=== PATIENT | female | born 1980 | race Caucasian/White ===

== ENCOUNTER 2019-06-28 15:47 | Emergency (ER) | payer OTHER, SELFPAY ==
--- NOTE | ~2019-06-28 | CT_ITS ---
EXAMINATION: CT abdomen pelvis w con INDICATION: Right lower quadrant pain, history of bowel obstruction TECHNIQUE: Computed tomographic images of the abdomen and pelvis were obtained after the administrati on of 100 cc of Omnipaque 350 intravenous contrast. The dose-length product (DLP) was 373.14 mGy-cm. Automated exposure control and iterative reconstruction technique were employed. COMPARISON: 07/10/2015 FINDINGS: The lung bases are clear. The heart size is normal. The gallbladder is surgically absent. T here is mild enlargement of the common bile duct and central intrahepatic ducts which is likely due t o post cholecystectomy state. The liver, spleen, pancreas, and adrenal glands are normal. The kidneys are unremarkable. No pathologically enlarged abdominal or pelvic lymph nodes are identified. There i s a small volume of ascites in the right lower quadrant and pelvis. Small bowel loops in the right lo wer quadrant are borderline distended with some demonstrating small bowel feces sign. The terminal il eum appears to be normal in caliber or decompressed beyond the affected segment. The appendix is norm al. An IUD is noted in the uterus. The bladder is distended. IMPRESSION: 1. Borderline distended small bowel of the right lower quadrant with small bowel feces sign which may reflect ileus versus early partial obstruction. Reviewed, dictated and finalized at location A. IMPRESSION: 1. Borderline distended small bowel of the right lower quadrant with small medardo l feces sign which may reflect ileus versus early partial obstruction.
--- NOTE | 2019-06-28 16:03 | ED.ABDPAIN ---
HPI - Abdominal Pain General Chief Complaint: Abdominal Pain Stated Complaint: Abd pain Time Seen by Provider: 06/28/19 15:57 Source: patient Mode of arrival: ambulatory Limitations: no limitations History of Present Illness HPI narrative: Patient is a 38-year-old female who presents for evaluation of abdominal pain. Pain is located in the right lower quadrant, described as sharp, aching in nature without radiation to the back or lower pelvis. No left-sided pain. Patient denies any nausea, vomiting, fever or chills. She did have some diarrhea this morning. No hematuria or dysuria. Patient does not believe she is , she has an IUD in place. No history of pain such as this in the past. She has a history of cholecystectomy, section, no other abdominal surgeries. Related Data Allergies Allergy/AdvReac Type Severity Reaction Status Date / Time No Known Allergies Allergy Verified 12/15/15 10:05 Review of Systems Review of Systems: Narrative: CONSTITUTIONAL: Denies fever CARDIOVASCULAR: Denies chest pain RESPIRATORY: Denies cough or dyspnea. GASTROINTESTINAL: Reports right-sided abdominal pain SKIN: Denies rash MUSCULOSKELETAL: Denies back pain NEUROLOGIC: Denies headache [facility] Past Medical History Medical History (Updated 06/28/19 @ 18:34 by Maria C Lawrence MD) No pertinent past medical history Surgical History Surgical History (Updated 06/28/19 @ 16:08 by Maria C Lwarence MD) Hx of cholecystectomy Social History Social History (Updated 06/28/19 @ 16:09 by Maria C Lawrence MD) Smoking status: Current every day smoker Tobacco type: cigarettes Alcohol intake: never Substance use: never Gender identity (if verbalized by the patient): Male Exam Narrative: Exam Narrative: GENERAL: Awake, alert, conversant HEAD: Normocephalic, atraumatic. EYES: PERRLA and EOMI. ENT: Nares clear, no rhinorrhea or epistaxis. Mucous membranes moist. NECK: Supple. CHEST: No respiratory distress, breathing even and non labored HEART: Regular rate, sinus rhythm ABDOMEN:Non distended, right lower quadrant abdominal tenderness EXTREMITIES: Normal range of motion. No edema. SKIN: Warm, dry, no rash. NEURO:No focal deficits. Alert and oriented x3 Course Vital Signs Vital signs: Vital Signs Temperature 37.3 C 06/28/19 16:13 Pulse Rate 103 H 06/28/19 16:13 Respiratory Rate 18 06/28/19 16:13 Blood Pressure 144/96 H 06/28/19 16:13 Pulse Oximetry 100 06/28/19 16:13 Temperature 37.3 C 06/28/19 16:13 Pulse Rate 103 H 06/28/19 16:13 Respiratory Rate 18 06/28/19 16:13 Blood Pressure 144/96 H 06/28/19 16:13 Pulse Oximetry 100 06/28/19 16:13 MDM - Abdominal Pain MDM Narrative Medical decision making narrative: Patient presented to the emergency department for evaluation of right lower quadrant abdominal pain. At the time of initial assessment, ABCs are intact and vital signs are stable. Physical exam notable for right lower quadrant abdominal pain without rebound or rigidity. No distention. IV access obtained and labs were drawn. Laboratory results show mild leukocytosis, no severe electrolyte derangement or acute kidney injury. CT scan is notable for small ileus versus early partial small bowel obstruction. Patient without any distention, nausea or vomiting. Patient was offered admission to the hospital and evaluation by general surgery as well as bowel rest, but patient declined, and wanted to pursue treatment at home for now with conservative therapy including pain and nausea medication as the patient is currently not vomiting. I did explain the importance of adhering to minimal oral intake and clear liquids only, that she should return if her pain worsen or she is unable to tolerate oral intake. Patient voiced understanding and was discharged home. Differential Diagnosis Differential diagnosis: Likely abdominal pain, acute appendicitis, calculus of kidney, constipation
[2019-06-28 16:13] VITALS: BP 144/96; PULSE 103; RESP 18; TEMP 37.3; O2SAT 100
[2019-06-28] MEDS: DICYCLOMINE HCL INJ 20 MG/2 ML VIAL IM (16:23)
[2019-06-28] MEDS: SODIUM CHLORIDE 0.9% IV 1,000 ML 999 ML IV CONT (16:23)
[2019-06-28 16:30] LABS: Basophils Absolute Auto 0.1 K/mm3 (0.0-0.1); Basophils Percent Auto 0.6 % (0.2-1.2); Eosinophils Absolute Auto 0.1 K/mm3 (0-0.3); Eosinophils Percent Auto 1.1 % (0-4.4); Hematocrit 44.1 % (37.0-47.0); Immature Granulocyte Absolute 0.03 K/mm3 (0.00-0.031); Immature Granulocyte Percent A 0.3 % (0-0.5); Lymphocytes Absolute Auto 2.44 K/mm3 (0.9-3.2); Lymphocytes Percent Auto 22.7 % (18.3-44.2); Mean Corpuscular Hemoglobin 31.1 pg (26-34); Mean Corpuscular Volume 91.3 fl (80-100); Mean Platelet Volume 10.9 fl (7.4-10.4); Monocytes Absolute Auto 0.7 K/mm3 (0.1-0.6); Neutrophils Absolute Auto 7.5 K/mm3 (1.3-6.7); Neutrophils Percent Auto 69.3 % (45.5-73.1); Platelet Count Result 221 k/mm3 (150-375); Red Blood Count 4.83 M/mm3 (4.2-5.4); Red Cell Distribution Width 12.5 % (11.5-14.5); White Blood Count 10.8 K/mm3 (4.5-10.0)
[2019-06-28 16:46] LABS: Add Urine Microscopic? YES; Appearance Urine Clear (Clear); Bilirubin Urine Negative (Negative); Blood Urine Negative (Negative); Color Urine Yellow (Yellow); Glucose Urine UA Negative (Negative); Ketones Urine Negative (Negative); Leukocyte Esterase Ur Negative LEU/UL (Negative); Mucus Urine Rare /lpf; Nitrate Urine Negative (Negative); Protein Urine 1+ mg/dL (Negative); Specific Grav Ur 1.018 (1.001-1.035); Squamous Epithelial Cell Urine Many /hpf (Few); Urobilinogen Urine Negative mg/dL (<2.0); WBC Urine 0-3 /hpf
[2019-06-28 17:11] LABS: Alanine Aminotransferase 18 U/L (4-35); Albumin Level 4.9 g/dL (3.5-5.1); Alkaline Phosphatase 73 U/L (38-126); Aspartate Amino Transferase 25 U/L (14-36); Bilirubin,Total 0.4 mg/dL (0.2-1.3); Blood Urea Nitrogen 15 mg/dL (7-17); Calcium 9.5 mg/dL (8.4-10.2); Carbon Dioxide 24 mmol/L (22-30); Chloride 102 mmol/L (98-107); Estimated CRCL calculation 96 ml/min; Estimated Glomerular Filt Rate > 60; Glucose 108 mg/dL (65-105); Lipase 66 U/L (23-300); Potassium 3.9 mmol/L (3.4-5.0); Sodium 137 mmol/L (137-145)
[2019-06-28 17:12] LABS: Estimated CRCL calculation 85 ml/min; Estimated Glomerular Filt Rate > 60
[2019-06-28 19:09] VITALS: BP 132/74; PULSE 70; RESP 14; O2SAT 99
== END 2019-06-28 19:10 | disposition home or self-care (01) ==
PROVIDERS: Emergency Provider Emergency Medicine; PCP Family Medicine
DX: K56.7 Ileus, unspecified (principal); F17.210 Nicotine dependence, cigarettes, uncomplicated
CPT/HCPCS: 36415; 74177; 80053; 81001; 81025; 83690; 85025; 96361; 96372; 96374; 99284; J0131; J0500; J7030; Q9967

== ENCOUNTER 2019-09-12 11:04 | Emergency (ER) | payer OTHER, SELFPAY ==
--- NOTE | ~2019-09-12 | XR_ITS ---
EXAMINATION: XR shoulder LT min 2V INDICATION: Left shoulder pain TECHNIQUE: Four views of the left shoulder are obtained. COMPARISON: None available FINDINGS: There is no fracture, dislocation, or subluxation. The bones, soft tissues, and joint space s are normal. IMPRESSION: 1. No acute osseous abnormality. Reviewed, dictated and finalized at location B.
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
--- NOTE | ~2019-09-12 | XR_ITS ---
EXAMINATION: XR ribs LT 2V w CXR 2V INDICATION: Left rib pain TECHNIQUE: PA and lateral views of the chest and 3 views of the left ribs were obtained. COMPARISON: 05/17/2018 FINDINGS: The lungs are free of acute opacities. There is no pleural effusion or pneumothorax. The ca rdiomediastinal silhouette is normal. No displaced rib fracture is identified. Surgical clips in the right upper quadrant are likely from prior cholecystectomy. IMPRESSION: 1. No acute cardiopulmonary abnormality or evidence of displaced rib fracture. Reviewed, dictated and finalized at location B.
[2019-09-12 11:16] VITALS: BP 128/81; PULSE 86; RESP 16; TEMP 37.2; O2SAT 98
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
[2019-09-12 12:48] VITALS: BP 126/86; PULSE 80; RESP 16; TEMP 36.6; O2SAT 98
== END 2019-09-12 12:49 | disposition home or self-care (01) ==
PROVIDERS: Emergency Provider Emergency Medicine; PCP Family Medicine
DX: M25.512 Pain in left shoulder (principal); S70.02XA Contusion of left hip, initial encounter; S20.212A Contusion of left front wall of thorax, initial encounter; J45.909 Unspecified asthma, uncomplicated; M16.0 Bilateral primary osteoarthritis of hip; F17.210 Nicotine dependence, cigarettes, uncomplicated; V47.5XXA Car driver injured in collision with fixed or stationary object in traffic accident, initial encounter
CPT/HCPCS: 71046; 71100; 73030; 73502; 81025; 99284

== ENCOUNTER 2021-01-16 08:22 | Outpatient (CLI) | payer BC, SELFPAY ==
--- NOTE | ~2021-01-16 | MM_ITS ---
EXAMINATION: MM screening raimundo BI w emily HISTORY: Screening TECHNIQUE: Craniocaudal and mediolateral oblique 3-D tomosynthesis images were obtained and synthetic 2-D images were generated. CAD analysis was submitted and interpreted. COMPARISON: No prior mammogram is available for comparison at this institution. BREAST PARENCHYMAL COMPOSITION: The breasts are heterogenously dense, which may obscure small masses. FINDINGS: There is no evidence of suspicious mass, calcification, or architectural distortion to sugg est malignancy in either breast. There has been no suspicious interval change. IMPRESSION: 1. No mammographic evidence of malignancy. 2. Recommend routine screening mammography in one year. BI-RADS Category 1: Negative Reviewed, dictated and finalized at location A. EF OPERATOR
== END 2021-01-16 08:23 | disposition home or self-care (01) ==
LOC: ANHIMG 08:24
PROVIDERS: PCP Family Medicine; Visit Provider Obstetrics & Gynecology
DX: Z12.31 Encounter for screening mammogram for malignant neoplasm of breast (principal)
CPT/HCPCS: 77063; 77067

== ENCOUNTER 2021-02-27 17:51 | Emergency (ER) | payer BC, SELFPAY ==
--- NOTE | 2021-02-27 17:52 | ED.URI ---
HPI - URI/Sore Throat General Chief Complaint: Upper Respiratory Infection Stated Complaint: fever/cough/sore throat Time Seen by Provider: 02/27/21 18:06 Source: patient and RN notes reviewed Mode of arrival: ambulatory Limitations: no limitations History of Present Illness HPI Narrative: 40-year-old female presents concern for fever, chills, fatigue, cough, sore throat that started yesterday. Reports she has been taking Tylenol and [id number] cold medicine with little relief. Reports she has members of her family have similar symptoms. MD elicited complaint: sore throat Related Data Allergies Allergy/AdvReac Type Severity Reaction Status Date / Time No Known Allergies Allergy Verified 10/31/19 08:14 Review of Systems Review of Systems: CONSTITUTIONAL: Reports malaise, chills, sweats,, fatigue, fever. EYES: Denies visual changes, redness, or discharge. ENT: Denies rhinorrhea, congestion, sinus pain, otalgia. Reports sore throat. CARDIOVASCULAR: Denies chest pain, palpitations, or edema. RESPIRATORY: Reports cough. Denies dyspnea. GASTROINTESTINAL: Denies abdominal pain, nausea, vomiting, diarrhea SKIN: Denies rash or itching. MUSCULOSKELETAL: Denies myalgia. NEUROLOGIC: Denies headache. All systems reviewed & are unremarkable except as noted in HPI and below PMFSH Past Medical History Medical History (Updated 02/27/21 @ 18:26 by Heaven Valadez NP) Asthma BMI 26.0-26.9,adult Bronchitis No pertinent past medical history Small bowel obstruction Surgical History Surgical History Hx of cholecystectomy S/P section Family History Family History Father Hypertension Mother Hypertension Unknown Diabetes mellitus Carcinoma of colon Father Diabetes mellitus Mother Diabetes mellitus Grandparent Carcinoma of colon Other Family history of malignant neoplasm Social History Social History Smoking status: Current every day smoker Tobacco type: cigarettes Alcohol intake: never Substance use: never Gender identity (if verbalized by the patient): Female Comments At time of signature, agree with nursing past medical, surgical, social and family history. There is no relevant family history pertinent to the presenting complaint Exam Narrative: GENERAL: Well-appearing, well-nourished, and in no acute distress. HEAD: Normocephalic EYES: PERRLA, conjunctivae clear ENT: Nares clear. Mucous membranes moist. TM pearly eagle with sharp light reflex bilaterally; no tragal tenderness. Oropharynx not erythematous without lesions. Tonsils not enlarged and without exudate, no drooling, no hoarseness, no trismus, uvula midline. NECK: Supple. No lymphadenopathy CHEST: Clear to auscultation, breath sounds equal. No wheezing, rhonchi, rales, or stridor. No respiratory distress, speaks in full sentences. HEART: Regular rate and rhythm. No murmur heard. SKIN: Warm, dry, no rash. NEURO: Alert and oriented x3. PSYCH: Normal mood and affect Course Course Emergency Course: Patient is aware of diagnosis, understands and agrees to treatment plan. Anticipatory guidance given. Patient agrees to follow-up as directed and is aware of reasons to seek care at the emergency department. Portions of this record may have been created with voice recognition software Level of Care: Express Care Visit Vital Signs Vital signs: Vital Signs Temperature 97.9 F 02/27/21 17:59 Pulse Rate 114 H 02/27/21 17:59 Respiratory Rate 16 02/27/21 17:59 Blood Pressure 144/87 H 02/27/21 17:59 Pulse Oximetry 98 02/27/21 17:59 Temperature 97.9 F 02/27/21 17:59 Pulse Rate 114 H 02/27/21 17:59 Respiratory Rate 16 02/27/21 17:59 Blood Pressure 144/87 H 02/27/21 17:59 Pulse Oximetry 98 02/27/21 17:59 Reviewed. MDM - URI/Sore Throat
[2021-02-27 17:59] VITALS: BP 144/87; PULSE 114; RESP 16; TEMP 36.6; O2SAT 98
== END 2021-02-27 18:35 | disposition home or self-care (01) ==
PROVIDERS: Emergency Provider Nurse Practitioner; PCP Family Medicine
DX: U07.1 COVID-19 (principal); F17.210 Nicotine dependence, cigarettes, uncomplicated; J45.909 Unspecified asthma, uncomplicated
CPT/HCPCS: 87426; 99213; C9803; G0463

== ENCOUNTER → 2021-07-20 16:54 | Outpatient (CLI) | payer BC, SELFPAY ==
--- NOTE | ~2021-07-20 | XR_ITS ---
XR foot LT 2V DATE: 07/20/2021 17:15 INDICATION: Left foot pain TECHNIQUE: AP and lateral views COMPARISON: None FINDINGS: There is postoperative change from bunionectomy. There is mild osteophyte is at the first m etatarsophalangeal joint. There is minimal plantar and posterior calcaneal enthesopathy. No fracture or dislocation, periosteal reaction or bone destruction. IMPRESSION: Status post bunionectomy Mild osteoarthritis at first metatarsophalangeal joint Slight plantar and posterior calcaneal enthesopathy Reviewed, dictated and finalized at location A.
== END ==
PROVIDERS: PCP Family Medicine; Visit Provider Nurse Practitioner Family
DX: M19.072 Primary osteoarthritis, left ankle and foot (principal); M77.32 Calcaneal spur, left foot
CPT/HCPCS: 73620

== ENCOUNTER 2022-10-21 19:20 | Emergency (ER) | payer BC, SELFPAY ==
[2022-10-21 19:28] VITALS: BP 134/88; PULSE 82; RESP 16; TEMP 37.2; O2SAT 100
--- NOTE | 2022-10-21 20:04 | ED.URI ---
HPI - URI/Sore Throat General Chief Complaint: Upper Respiratory Infection Stated Complaint: cough,feeling bad Time Seen by Provider: 10/21/22 20:05 Source: patient Mode of arrival: ambulatory Limitations: no limitations History of Present Illness HPI Narrative: 41 yo F presents with c/o cough for 5 days. Started mucinex yesterday. Coughing up clear sputum. Afebrile. Denies CP/SOB. pt well appearing. laughing and talkative during exam. All systems reviewed and negative except as noted above. Related Data Home Medications Medication Instructions Recorded Confirmed pilocarpine HCl 1.25 % eye drops drp 10/21/22 ([facility]) Allergies Allergy/AdvReac Type Severity Reaction Status Date / Time No Known Allergies Allergy Verified 10/21/22 19:22 Review of Systems Review of Systems: CONSTITUTIONAL: Denies fever, chills, or sweats. EYES: Denies visual changes, redness, or discharge. ENT: Denies rhinorrhea, congestion, sore throat, or otalgia. CARDIOVASCULAR: Denies chest pain, palpitations, or edema. RESPIRATORY: reports cough. Denies dyspnea. GASTROINTESTINAL: Denies abdominal pain, nausea, vomiting, or diarrhea. GENITOURINARY: Denies dysuria or hematuria. SKIN: Denies rash or itching. MUSCULOSKELETAL: Denies back pain, joint pain, or myalgia. NEUROLOGIC: Denies headache, numbness, or weakness. PSYCHIATRIC: Denies anxiety or depression. All other systems reviewed are negative, except as documented in HPI. [facility] Past Medical History Medical History Asthma BMI 26.0-26.9,adult Bronchitis No pertinent past medical history Screening mammogram, encounter for Small bowel obstruction Surgical History Surgical History History of gynecological procedure (05/09/17) mirena iud insertion Hx of cholecystectomy S/P section Family History Family History Father Hypertension Cirrhosis of liver Mother Hypertension Unknown Diabetes mellitus Carcinoma of colon Father Diabetes mellitus Mother Diabetes mellitus Grandparent Carcinoma of colon Other Family history of malignant neoplasm Social History Social History (Updated 08/24/22 @ 09:28 by Bella Perez [facility]) Smoking status: Former smoker (vaping) Tobacco type: e-cigarettes/vaping Second hand tobacco smoke exposure: No Smoking end date: 11/15/20 Alcohol intake: never Substance use: current Substance use type: marijuana Other substance usage details: 2-3 times a week for sleep Lack of Transportation: No Lack of Food: Never True Current Housing: I Have Housing Concerned About Future Housing: No Difficulty Paying Gas/Electric Bills: No Difficulty Paying for Meds: No Currently Unemployed: No Education: High School Diploma/GED Difficulty w/ Childcare or Family Care: No Living arrangements: other Additional living arrangements comments: Occupation/Education: occupation 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 There is no relevant family history pertinent to the presenting complaint. Exam Narrative: GENERAL: This is a well-nourished, well-developed patient, in no apparent distress. HEAD: normocephalic, atraumatic. EYES: PERRL. Sclera clear/white. Vision is grossly intact. EARS: External ears normal, auditory canals clear and without drainage, TMs normal without perforation. Hearing grossly intact. NOSE: External nose normal with no obvious nasal discharge, nares without redness, no rhinorrhea. THROAT: Mucous membranes moist, posterior pharynx mateus
== END 2022-10-21 20:58 | disposition home or self-care (01) ==
PROVIDERS: Emergency Provider Nurse Practitioner Family; PCP Family Medicine
DX: R05.1 Acute cough (principal); Z87.891 Personal history of nicotine dependence; F12.90 Cannabis use, unspecified, uncomplicated; J45.909 Unspecified asthma, uncomplicated
CPT/HCPCS: 87880; 99213; G0463

== ENCOUNTER 2022-11-21 07:26 | Outpatient (CLI) | payer BC, SELFPAY ==
--- NOTE | ~2022-11-21 | MM_ITS ---
EXAMINATION: MM screening raimundo BI w emily HISTORY: Screening mammogram TECHNIQUE: Craniocaudal and mediolateral oblique 3-D tomosynthesis images were obtained and synthetic 2-D images were generated. Bilateral rotated lateral CC views. CAD analysis was submitted and interp reted. COMPARISON: 01/2021 bilateral screening mammogram BREAST PARENCHYMAL COMPOSITION: The breasts are heterogeneously dense, which may obscure small masses . FINDINGS: There is no evidence of suspicious mass, calcification, or architectural distortion to sugg est malignancy in either breast. There has been no suspicious interval change. IMPRESSION: 1. No mammographic evidence of malignancy. 2. Recommend routine screening mammography in one year. BI-RADS Category 1: Negative Reviewed, dictated and finalized at location A.
== END 2022-11-21 07:27 | disposition home or self-care (01) ==
LOC: ANHIMG 07:29
PROVIDERS: PCP Family Medicine; Visit Provider Obstetrics & Gynecology
DX: Z12.31 Encounter for screening mammogram for malignant neoplasm of breast (principal)
CPT/HCPCS: 77063; 77067

== ENCOUNTER 2024-01-04 07:24 | Outpatient (CLI) | payer BC, SELFPAY ==
--- NOTE | ~2024-01-04 | MR_ITS ---
EXAMINATION: MR foot RT wo con DATE: 01/04/2024 08:05 INDICATION: Spontaneous rupture flexor tendons at the right foot TECHNIQUE: Magnetic resonance imaging (MRI) of the right fore/mid foot was performed without intraven ous contrast. Sequences included sagittal T1-weighted FSE, sagittal fluid sensitive FSE STIR, coronal PD-weighted FS FSE, coronal T1-weighted FSE, axial PD-weighted FS FSE, and axial PD-weighted FSE. COMPARISON: None FINDINGS: Postoperative changes with prior bunionectomy and hallux valgus correction including numerous foci esparza sceptibility artifact consistent with prior realignment osteotomies at the neck of the first metatars al and base of the first proximal phalanx and osteophyte along the medial head of the first metatarsa l. There is mild residual hallux valgus. There is a hammertoe deformity at the second toe. There is a tear of the lateral side of the plantar plate and both the accessory and proximal lateral collateral ligaments. The Lisfranc ligament complex and the remaining collateral ligament complex at the metata rsophalangeal and interphalangeal joints are normal. There is mild tenosynovitis along the flexor ten don sheath to the second toe. The flexor tendons appear normal but are subluxed slightly medially at the level of the metatarsophalangeal joint. The remaining flexor and extensor tendons are normal. No fracture. There is moderate osteoarthritis at the first metatarsophalangeal joint. There is osteonecr osis involving a significant portion of the articular surface at the head of the first metatarsal. Th ere is linear fluid signal along portions of the margins of the osteonecrosis as well as suggestion o f minimal irregularity to the contour of the articular cortex at the margins of the osteonecrosis sug gesting a minimal amount of collapse of the overlying articular cortex. There is mild osteoarthritis involving many of the remaining joints in the 4 and midfoot. Physiologic amount fluid in the joint sp aces. There is mild soft tissue edema about the second metatarsophalangeal joint. IMPRESSION: 1. Second hammertoe deformity with tears of the medial side of the plantar plate and the lateral larry ateral ligament complex at the second metatarsophalangeal joint. 2. Postoperative change of prior hallux valgus correction and bunionectomy with mild residual hallux valgus and with moderate osteoarthritis at the first metatarsophalangeal joint. 3. 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 4. Mild tenosynovitis along the flexor tendon sheath to second toe with slight medial subluxation at the level of the metatarsophalangeal joint of the otherwise normal appearing tendons. Reviewed, dictated and finalized at location B. RAN APPEALS REVIEWER IMPRESSION: 1. Second hammertoe deformity with tears of the medial side of the plantar plat e and the lateral collateral ligament complex at the second metatarsophalangeal joint. 2. Postoperative change of prior hallux valgus correction and bunionectomy with mild residual hallux valgus and with moderate osteoarthritis at the first meta tarsophalangeal joint. 3. 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 4. Mild tenosynovitis along the flexor tendon sheath to second toe with slight medial subluxation at the level of the metatarsophalangeal joint of the otherwi se normal appearing tendons.
== END 2024-01-04 07:25 | disposition home or self-care (01) ==
PROVIDERS: PCP Family Medicine; Visit Provider Podiatrist Foot & Ankle Surgery
DX: M66.371 Spontaneous rupture of flexor tendons, right ankle and foot (principal); M13.871 Other specified arthritis, right ankle and foot; M20.41 Other hammer toe(s) (acquired), right foot; S93.691A Other sprain of right foot, initial encounter; M87.874 Other osteonecrosis, right foot; M65.871 Other synovitis and tenosynovitis, right ankle and foot; X58.XXXA Exposure to other specified factors, initial encounter
CPT/HCPCS: 73718

== ENCOUNTER 2024-06-13 19:24 | Emergency (ER) | payer BC, SELFPAY ==
[2024-06-13 19:30] VITALS: BP 128/88; PULSE 85; RESP 18; TEMP 37.2; O2SAT 100
--- NOTE | 2024-06-13 19:40 | ED.EYEPROB ---
HPI - Eye Problem General Chief complaint: Eye Problems Stated complaint: Eyes Irritation Time Seen by Provider: 06/13/24 19:25 Source: patient Mode of arrival: ambulatory Limitations: no limitations History of Present Illness HPI Narrative: Patient is a 43 year old female that presents with bilateral eye redness and drainage. Reports they were crusted shut this morning. Patient has also had congestion and sore throat. Denies any fever, chills, n/v/d. Has not taken anything for symptoms. Related Data Home Medications ?Medication ?Instructions ?Recorded ?Confirmed ?Last Taken ?Type pilocarpine HCl 1.25 % eye drops drp 10/21/22 12/27/23 Unknown History ([facility]) diclofenac sodium 50 mg 50 mg PO Q12H 06/13/24 06/13/24 Unknown History tablet,delayed release Allergies Allergy/AdvReac Type Severity Reaction Status Date / Time No Known Allergies Allergy Verified 06/13/24 19:35 Review of Systems Review of Systems: All systems reviewed & are unremarkable except as noted in HPI and below Constitutional: Constitutional: Denies body ache(s), Denies fever(s), Denies headache(s), Denies malaise and Denies weakness Eyes: Eyes: Denies blurry vision, Reports eye discharge, Reports irritation, Reports itchy eyes, Denies loss of vision and Denies eye pain ENT: Denies otalgia, Denies headache(s), Reports nasal congestion, Denies sinus pain and Reports sore throat Cardiovascular: Cardiovascular: Denies chest pain, Denies irregular heart rhythm and Denies dyspnea Respiratory: Respiratory: Denies dyspnea Gastrointestinal: Gastrointestinal: Denies abdominal pain, Denies diarrhea, Denies nausea and Denies vomiting Musculoskeletal: Musculoskeletal: Denies back pain, Denies myalgias and Denies arthralgias Integumentary/Breasts: Skin/Breast: Denies pruritus and Denies rash Neurologic: Denies headache(s), Denies loss of vision and Denies weakness Psychiatric: Psychiatric: Reports no additional psychiatric complaints Allergic/Immunologic: Allergic/Immunologic: Reports itchy eyes PMFSH Past Medical History Medical History Encounter for screening examination for sexually transmitted disease Screening mammogram, encounter for BMI 26.0-26.9,adult Small bowel obstruction Bronchitis Asthma No pertinent past medical history Surgical History Surgical History History of bunionectomy of right great toe (01/20/23) History of gynecological procedure (05/09/17) mirena iud insertion S/P section Hx of cholecystectomy Family History Family History Father Hypertension Cirrhosis of liver Diabetes mellitus Mother Hypertension Diabetes mellitus Grandparent Carcinoma of colon Sibling No problems noted. Other Family history of malignant neoplasm Social History Social History Smoking status: Former smoker (vaping) Tobacco type: e-cigarettes/vaping Second hand tobacco smoke exposure: No Smoking end date: 11/15/20 Alcohol intake: never Substance use: current Substance use type: marijuana Other substance usage details: 2-3 times a week for sleep Do You Feel Safe in your Home?: Yes Lack of Transportation: No Lack of Food: Never True Current Housing: I Have Housing Concerned About Future Housing: No Difficulty Paying Gas/Electric Bills: No Difficulty Paying for Meds: No Currently Unemployed: No Education: High School Diploma/GED Difficulty w/ Childcare or Family Care: No Living arrangements: other Additional living arrangements comments: Occupation/Education: occupation 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 There is no relevant family history pertinent to the presenting complaint. Exam Const: General: cooperative, healthy appearing, comfortable, no acute distress and well nourished Nutritional Appearance: well nourished Orientation/consciousness: patient oriented x3 Limitations: no limitations HENMT: Head: normal to inspection, normocephalic and atraumatic Ears: external ears normal Face/Nose/Sinus: Normal external nose present, normal facial exam and face symmetric Face and sinus: normal facial exam and face symmetric Mouth: Yes Normal oral and palatal mucosa present, Yes lip normal and Yes tongue normal Teeth and gingiva: dentition normal Throat: abnormal tonsil bilateral erythema, posterior oropharynx abnormal erythema and postnasal drainage Eyes: General: appearance normal, both eyes and all related structures Visual Sims: normal visual sims by confrontation Alignment and Position: alignment normal and position normal Periorbital: periorbital findings normal Eyelids: eyelids normal Conjunctivae: conjunctival abnormality bilateral conjunctival injection diffuse Sclera: scleral abnormality bilateral scleral injection diffuse Pupils: Equal, round and reactive pupils present EOM: EOMs intact bilaterally Direct Ophthalmoscopy: no photophobia Other: No hyphema, no foreign body under the lids. Neck: Neck: normal visual inspection, full ROM, no lymphadenopathy and no meningeal signs Chest: Chest palpation & inspection: normal inspection of the chest Resp: Effort & Inspection: normal respiratory effort and able to speak in complete sentences Auscultation: clear to auscultation bilaterally Cardio: Rate: regular rate Rhythm: regular rhythm Heart sounds: S1 normal heart sound present and S2 normal heart sound present GI: Inspection: normal to inspection Skin: General skin exam: normal color and no rashes or lesions noted Neuro: General: patient oriented x3, moves all extremities and no meningeal signs Cranial nerves: Yes Equal, round and reactive pupils present Speech: normal speech Gait exam (Neuro): Normal gait present Extrem: General: normal to inspection, full ROM and no edema Psych: Appearance: grossly normal and well kempt Mental Status: mental status grossly normal Speech and movement: Normal speech and movement present Affect: normal affect Attitude: cooperative Thought process: Normal thought process present Course Course Emergency Course: Patient is aware of diagnosis, understands and agrees to treatment plan. Anticipatory guidance given. Patient agrees to follow-up as directed and is aware of reasons to seek care at the emergency department. Portions of this record may have been created with voice recognition software Level of Care: Express Care Visit Vital Signs Vital signs: Vital Signs Temperature 37.2 C 06/13/24 19:30 Pulse Rate 85 06/13/24 19:30 Respiratory Rate 18 06/13/24 19:30 Blood Pressure 128/88 06/13/24 19:30 Pulse Oximetry 100 06/13/24 19:30 Oxygen Delivery Room Air 06/13/24 19:30 Temperature 37.2 C 06/13/24 19:30 Pulse Rate 85 06/13/24 19:30 Respiratory Rate 18 06/13/24 19:30 Blood Pressure 128/88 06/13/24 19:30 Pulse Oximetry 100 06/13/24 19:30 Oxygen Delivery Room Air 06/13/24 19:30 Reviewed MDM - Eye Problem MDM Narrative Medical decision making narrative: Pt well hydrated appearing, in no respiratory distress, hemodynamically stable. Recommend supportive care. The patient is stable at time of discharge the clinical impression was discussed and the patient was given the opportunity to ask questions, which were addressed as completely as possible given the information available at present. Anticipatory guidance and return to care precautions were discussed and the importance of primary care follow-up was stressed and encouraged. The patient voiced understanding of the plan, indications to return, and the need for follow-up. Exam findings show no acute concerns or changes Patient is appropriate for outpatient treatment and follow-up. Differential Diagnosis Differential diagnosis: Likely corneal abrasion, conjunctivitis, corneal ulcer and other (URI, strep, viral infection, allergic rhinitis. ) Medical Records Attestation: I reviewed the patient's medical records. Lab Data Attestation: I reviewed the patient's lab results. Lab results narrative: strep was negative Discharge Plan Discharge Clinical Impression: Bacterial conjunctivitis Patient Disposition: Home Condition: Stable Instructions: Conjunctivitis (ED) Additional Instructions: Eye drops as prescribed. -Do this for 3 to 4 days until all redness and discharge has disappeared. -Cold compresses to the affected eye for comfort -May need warm compresses to remove debris in the morning -When cleaning the eyes used a washcloth/cotton ball in one direction then change washcloths/cotton ball before using it on another eye. -Do not share medicine--do not touch the eye with the medicine -Alternate or take Tylenol or ibuprofen as directed in the bottle for pain -Avoid screen time--television, computer, tablet or phone. -Practice good handwashing and hygiene to prevent spread of infection Follow-up with PCP or laundry or dry cleaners counter clerk if condition is not improving in 2-3days. Go to the emergency room if you have pain behind your eye, pressure behind her eye, difficulty seeing, or other severe symptoms Patient Language: Pashto Prescriptions: New ofloxacin 0.3 % drops See Rx Instructions .ROUTE .COMPLEX Qty: 15 0RF Rx Instructions: put 1-2 drps into each eye every 2-4 h x 2 days, then 1-2 drps 4 times/day days 3-7 fluticasone propionate [Flonase Allergy Relief] 50 mcg/actuation spray,suspension 1 spray intranasal DAILY Qty: 16 0RF Rx Instructions: administer into each nostril No Action diclofenac sodium 50 mg tablet,delayed release (DR/EC) 50 mg PO Q12H [facility] 1.25 % drops sertraline 100 mg tablet See Rx Instructions .ROUTE .COMPLEX Qty: 180 0RF Dose Instruction: TAKE 1 TABLET BY MOUTH DAILY Rx Instructions: TAKE 2 TABLET BY MOUTH DAILY Follow-up/Referrals: Lele Rodriguez MD [Primary Care Provider] - 3 Days Stand Alone Forms: Work/School Release IP Time of Disposition: 19:52
[2024-06-13 20:03] LABS: EDSTREPNEGPOS1 Negative (Negative)
== END 2024-06-13 19:57 | disposition home or self-care (01) ==
PROVIDERS: Emergency Provider Nurse Practitioner Family; PCP Family Medicine
DX: H10.9 Unspecified conjunctivitis (principal); Z87.891 Personal history of nicotine dependence; F12.90 Cannabis use, unspecified, uncomplicated; J45.909 Unspecified asthma, uncomplicated
CPT/HCPCS: 87081; 87880; 99213; G0463